=== PATIENT | female | born 1960 | race Caucasian/White ===

== ENCOUNTER 2024-12-19 09:05 | Day surgery (SDC) | payer OTHER ==
[~2024-12-19] VITALS: Ht 167.6 cm; Wt 86.0 kg
[~2024-12-19 09:05] MED LIST: ACID CONTROLLER20 MG PO; ACYCLOVIR400 MG PO; ATORVASTATIN CA40 MG PO; CALCIUM500 M1 PO; CELEBREX200 MG PO; COQ-10100 MG PO; DOTTI1 EAC1 TD; IBLOOD GLUCOSE TEST STRIP 1 EA TEST VI PRN; LACTATED RINGER'S 1,000 ML IV SCH; LIDOCAINE HCL 1% 5 ML SDV INJ ONE; LIDOCAINE HCL 2% 5 ML SDV ONE; MAGNESIUM500 MG PO; METOPROLOL SUCC25 MG PO; NP THYROID60 MG PO; VITAMIN B COMP1 EACH PO; VITAMIN D310 MC5 PO; VITAMIN E134 M1 PO
[2024-12-19 09:34] VITALS: BP 113/67
[2024-12-19 10:01] LABS: BASOPHILS 1.3 % (0.1-1.2); EOSINOPHILS 2.4 % (0.7-5.8); LYMPHOCYTES 31.5 % (19.3-51.7); MCH 30.9 PG (25.6-32.2); MCHC 34.2 g/dL (32.2-35.5); MCV 90.3 fL (79.4-94.8); MONOCYTES 12.3 % (4.7-12.5); NEUTROPHILS 52.1 % (34.0-71.1); RBC 4.73 M/uL (3.93-5.22)
[2024-12-19] MEDS ORDERED: GLUCAGON,HUMAN RECOMBINANT 1 MG/ML VIAL ONE (11:49)
[2024-12-19] MEDS ORDERED: fentaNYL citrate 100 MCG/2 ML VIAL ONE (11:50)
--- NOTE | 2024-12-19 12:18 | NUR ---
12/19/24 1218 Jaja Sifuentes 1212-PATIENT ARRIVED TO PACU ON RA 90% RR EVEN. PLACED ON 2L NC 02 SAT INCREASED 94% PATIENT REACTIVE TO VERBAL STIMULI SLOWLY OPENING EYES VERY DROWSY ORIENTED TO PACU. EYES CLOSED. SR WITH OCCASIONAL PVC. IVF INFUSING. SR HR 6-70'S. 1215-PATIENT AROUSING VERY DROWSY REPORTS "NEED TO GO TO THE BATHROOM" ENCOURAGED TO PASS GAS EDUCATED ABOUT NOT BEING ABLE TO GET UP AT THIS TIME. 1217-PATIENT REPOSITIONING SELF IN BED LAYING ON LEFT SIDE PASSING GAS. 98% 2L NC RR EVEN.
[2024-12-19 13:01] VITALS: BP 128/79
--- NOTE | 2024-12-19 21:28 | EKG ---
[facility] [address] [place], [place] [address] Signed Sinus bradycardia Left axis deviation Incomplete left bundle branch block Abnormal ECG No previous ECGs available Confirmed by Aakash Noe MD () on 12/19/2024 9:28:05 PM Electronically Signed By: AAKASH NOE MD 12/19/242127 PATIENT NAME: MIROSLAVA MOLINA Electrocardiogram DATE OF : 58 PHYSICIAN: AAKASH NOE MD REPORT #: [id number] REPORT IS CONFIDENTIAL AND NOT TO BE RELEASED WITHOUT AUTHORIZATION
--- NOTE | 2024-12-21 12:37 | PATH ---
[facility] [address] [facility] [place], [place] [address] Signed SPECIMEN(S): A CECUM POLYP SPECIMEN SOURCE: A. CECUM POLYP CLINICAL HISTORY: Screening-personal history of polyps. Postop-polyp A) polyp FINAL PATHOLOGIC DIAGNOSIS: Cecum polyp: - Tubular adenoma, negative for high-grade dysplasia. NA MICROSCOPIC EXAMINATION: Histologic sections of all submitted blocks are examined by light microscopy. These findings, together with the gross examination, support the pathologic diagnosis. GROSS DESCRIPTION: The specimen, labeled and designated "Krishan cecum polyp," is received in formalin and consists of one minor soft tissue fragment, 0.2 cm. Entirely submitted in (A1). AB (under the direct supervision of a pathologist) The Gross Description was prepared using a voice recognition system. The report was reviewed for accuracy; however, sound-alike word errors, addition and/or deletions may occur. If there is any question about this report, please contact Client Services. ADDITIONAL NOTES: Immunohistochemical and/or in situ hybridization studies if performed in this case included appropriate positive controls that reacted as expected. This test was developed and its performance characteristics determined by [facility]. It has not been cleared or approved by the U.S. Food and Drug Administration. The FDA has determined that such clearance or approval is not necessary. This test is used for clinical purposes. It should not be regarded as investigational or for research. [facility] is certified under the Clinical Laboratory Improvement Amendments of 1988 (CLIA) as qualified to perform high complexity clinical laboratory testing. PATIENT NAME: MIROSLAVA MOLINA PATHOLOGY DATE OF : 58 REPORT #: [id number] PHYSICIAN: RAQUEL ABDULLAHI PCP: RENAY SALAZAR REPORT IS CONFIDENTIAL AND NOT TO BE RELEASED WITHOUT AUTHORIZATION [address], [place] [address] Signed PERFORMING LABORATORY: Technical component was [place] [address] (CLIA# [id number]). Professional interpretation was performed by [facility] [place] [address] (CLIA#: [id number]). Diagnostician: Darrel Jung MD Pathologist Electronically Signed 12/21/2024 Copies: ~ PATIENT NAME: MIROSLAVA MOLINA PATHOLOGY DATE OF : 58 REPORT #: [id number] PHYSICIAN: RAQUEL ABDULLAHI PCP: RENAY SALAZAR REPORT IS CONFIDENTIAL AND NOT TO BE RELEASED WITHOUT AUTHORIZATION
== END 2024-12-19 13:10 | disposition home or self-care (01) ==
LOC: DS 09:05 → OPS 09:05 → DS 11:15 → OPS 13:10
PROVIDERS: ATTEND Surgery
PROC: 0DBH8ZX Excision of Cecum, Via Natural or Artificial Opening Endoscopic, Diagnostic (ICD-10-PCS; principal; 2024-12-19 11:15)
DX: D12.0 Benign neoplasm of cecum (principal); K63.89 Other specified diseases of intestine; Z86.0100 Personal history of colon polyps, unspecified; E03.9 Hypothyroidism, unspecified; E78.2 Mixed hyperlipidemia; I48.0 Paroxysmal atrial fibrillation; Z88.8 Allergy status to other drugs, medicaments and biological substances
CPT/HCPCS: 00811; 36415; 85025; 93005; 93010; J1610; J2003; J2704; J3010; J7121